=== PATIENT | female | born 1990 | race Caucasian/White ===

== ENCOUNTER 2019-02-10 12:11 | Emergency (ER) | payer SELFPAY ==
[2019-02-10 12:43] LABS: APPEARANCE,URINE CLEAR; BILIRUBIN,URINE NEGATIVE (NEGATIVE); COLOR,URINE YELLOW; GLUCOSE, URINE NEGATIVE (NEGATIVE); KETONES,URINE NEGATIVE (NEGATIVE); LEUKOCYTE ESTERASE,URINE SMALL (NEGATIVE); NITRITE,URINE NEGATIVE (NEGATIVE); PROTEIN,URINE NEGATIVE (NEGATIVE); URINE SPECIFIC GRAVITY 1.014; UROBILINOGEN,URINE NEGATIVE mg/dL (<2.0)
[2019-02-10] MEDS ORDERED: KETOROLAC TROMETHAMINE INJ/PF 30 MG/1 ML SDV IV ONE (13:36)
--- NOTE | 2019-02-10 13:38 | ER Document Report ---
ED Medical Screen (RME) - General Chief Complaint: Possible Kidney Stone Stated Complaint: FLANK PAIN Time Seen by Provider: 02/10/19 13:30 Primary Care Provider: CHRISTOPHER REYES MD [Primary Care Provider] - Follow up as needed Mode of Arrival: Ambulatory Information source: Patient TRAVEL OUTSIDE OF THE [place] IN LAST 30 DAYS: No - HPI Patient complains to provider of: ABDO PAIN Notes: 02/10/19 13:36 Patient here with complaints of right lower quadrant abdominal pain. Is been having this pain for the last several days. She has had a history of kidney stones and was seen by her primary care doctor who thought she may be having a kidney stone. She is been taking tramadol and Flomax. No fevers. No vomiting. Exam Nontoxic, no distress. Lungs clear and equal throughout. Heart sounds normal. Right lower quadrant tenderness to palpation on limited triage abdominal exam. No CVA tenderness to percussion. Plan CBC, CMP, lipase, urine, urine . CT abdomen pelvis with IV contrast due to right lower quadrant tenderness on exam. Toradol for pain. An initial examination was made on the patient as part of the triage process, and it was determined a more comprehensive evaluation was necessary. Initial labs were ordered and patient was transferred to another provider in the ED who assumed care and finished evaluation and plan. - Related Data Allergies/Adverse Reactions: azithromycin [From Zithromax] Allergy (Verified 02/10/19 13:25) Hives ciprofloxacin [From Cipro] Adverse Reaction (Verified 02/10/19 13:25) Past Medical History - General Last Menstrual Period: 01/29/19 - Social History Frequency of alcohol use: None Drug Abuse: None Renal/ Medical History: Reports: Hx Kidney Stones. Denies: Hx Peritoneal Dialysis Past Surgical History: Reports: Hx Breast Surgery, Hx Orthopedic Surgery - jaw, Hx Tonsillectomy Physical Exam - Vital signs Vitals: Temp Pulse Resp BP Pulse Ox 98.4 F 88 18 104/66 98 02/10/19 12:23 02/10/19 12:23 02/10/19 12:23 02/10/19 12:23 02/10/19 12:23 Course - Vital Signs Vital signs: Temp Pulse Resp BP Pulse Ox 98.4 F 88 18 104/66 98 02/10/19 12:23 02/10/19 12:23 02/10/19 12:23 02/10/19 12:23 02/10/19 12:23 - Laboratory Laboratory results interpreted by me: 02/10/19 12:12 Urine Blood MODERATE H Ur Leukocyte Esterase SMALL H Doctor's Discharge - Discharge Referrals: CHRISTOPHER REYES MD [Primary Care Provider] - Follow up as needed
[2019-02-10 14:29] LABS: ABSOLUTE EOSINOPHILS # (AUTO) 0.1 10^3/uL (0.0-0.6); ABSOLUTE LYMPHOCYTES (AUTO) 2.2 10^3/uL (0.5-4.7); ABSOLUTE MONOCYTES (AUTO) 0.5 10^3/uL (0.1-1.4); ABSOLUTE NEUT (AUTO) 3.1 10^3/uL (1.7-8.2); BASOPHILS % (AUTO) 0.6 % (0-2); HEMATOCRIT 43.2 % (36.0-47.0); HEMOGLOBIN 14.4 g/dL (12.0-15.5); LYMPHOCYTES % (AUTO) 36.9 % (13-45); MEAN CORPUSCULAR HEMOGLOBIN 27.9 pg (27.0-33.4); MEAN CORPUSCULAR HGB CONC 33.3 g/dL (32.0-36.0); MEAN CORPUSCULAR VOLUME 84 fl (80-97); MONOCYTES % (AUTO) 9.1 % (3-13); PLATELET COUNT 325 10^3/uL (150-450); RED BLOOD COUNT 5.16 10^6/uL (3.72-5.28); RED CELL DISTRIBUTION WIDTH 13.2 % (11.5-14.0); SEGMENTED NEUTROPHILS % (AUTO) 51.4 % (42-78); TOTAL CELLS COUNTED % (AUTO) 100 %
[2019-02-10 14:48] LABS: ALANINE AMINOTRANSFERASE 13 U/L (9-52); ALBUMIN 4.2 g/dL (3.5-5.0); ALKALINE PHOSPHATASE 36 U/L (38-126); ANION GAP 10 (5-19); ASPARTATE AMINO TRANSFERASE 17 U/L (14-36); BILIRUBIN,DIRECT 0.2 mg/dL (0.0-0.4); BILIRUBIN,TOTAL 0.5 mg/dL (0.2-1.3); BLOOD UREA NITROGEN 9 mg/dL (7-20); CALCIUM 9.8 mg/dL (8.4-10.2); CARBON DIOXIDE 28 mmol/L (22-30); CHLORIDE 103 mmol/L (98-107); LIPASE 57.8 U/L (23-300); POTASSIUM 4.3 mmol/L (3.6-5.0); SODIUM 140.7 mmol/L (137-145); TOTAL PROTEIN 6.5 g/dL (6.3-8.2)
[2019-02-10 15:00] LABS: GLUCOSE 67 mg/dL (75-110)
--- NOTE | 2019-02-10 17:30 | RADIOLOGY REPORT (SQ) ---
EXAM DESCRIPTION: CT ABD/PELVIS WITH IV ONLY COMPLETED DATE/TIME: 02/10/2019 5:03 pm REASON FOR STUDY: RLQ PAIN COMPARISON: None. TECHNIQUE: CT scan of the abdomen and pelvis performed using helical scanning technique with dynamic intravenous contrast injection. No oral contrast. Images reviewed with lung, soft tissue, and bone windows. Reconstructed coronal and sagittal MPR images reviewed. Delayed images for evaluation of the urinary system also acquired. All images stored on PACS. All CT scanners at this facility use dose modulation, iterative reconstruction, and/or weight based d osing when appropriate to reduce radiation dose to as low as reasonably achievable (ALARA). [facility]: Dose Right [facility]: CareDose [facility]: Dose Right [facility]: Teradose 4D [facility]: ChoiceMap CONTRAST TYPE AND DOSE: contrast/concentration: Isovue 350.00 mg/ml; Total Contrast Delivered: 71.0 ml; Total Saline Delivered: 56.4 ml RENAL FUNCTION: BUN 9 creatinine 0.74 RADIATION DOSE: CT Rad equipment meets quality standard of care and radiation dose reduction techniq ues were employed. CTDIvol: 5.5 - 6.8 mGy. DLP: 628 mGy-cm.. LIMITATIONS: None. FINDINGS: LOWER CHEST: No significant findings. No nodules or infiltrates. LIVER: Normal size. No masses. No dilated ducts. SPLEEN: Normal size. No focal lesions. PANCREAS: No masses. No significant calcifications. No adjacent inflammation or peripancreatic fluid collections. Pancreatic duct not dilated. GALLBLADDER: Contracted. ADRENAL GLANDS: No significant masses or asymmetry. RIGHT KIDNEY AND URETER: Duplicated collecting system. No mass. Tiny nonobstructing lower calyceal calculus. Upper moiety hydronephrosis. There is a large calcification in the region of the right UVJ. This seems rather too large to be in the ureter without causing marked hydronephrosis. LEFT KIDNEY AND URETER: No solid masses. No significant calcifications. No hydronephrosis or hydr oureter. AORTA AND VESSELS: No aneurysm. No dissection. Renal arteries, SMA, celiac without stenosis. RETROPERITONEUM: No retroperitoneal adenopathy, hemorrhage or masses. BOWEL AND PERITONEAL CAVITY: No masses or inflammatory changes. No free fluid or peritoneal masses. APPENDIX: Not identified. The appendix lies deep in the pelvis. There is no pericecal inflammation. PELVIS: 2 centimeter left ovarian cyst. ABDOMINAL WALL: No masses. No hernias. BONES: No significant or acute findings. OTHER: No other significant finding. IMPRESSION: 1. 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 T here is an 8 x 12 millimeter calculus in the region of the right UVJ. 2. Small nonobstructing intrarenal calculus in the right kidney. 3. Small left ovarian cyst, almost certainly benign. No additional imaging is required for this. TECHNICAL DOCUMENTATION: JOB ID: [id number] Quality ID # [id number]: Final reports with documentation of one or more dose reduction techniques (e.g., Au tomated exposure control, adjustment of the mA and/or kV according to patient size, use of iterative reconstruction technique) 2010 [employer]- All Rights Reserved Reading location - IP/workstation name: [email or web address]
[2019-02-10] MEDS ORDERED: MORPHINE SULFATE 10 MG/ML INJ IV ONE (18:05)
[2019-02-10] MEDS ORDERED: ONDANSETRON HCL INJ/PF 4 MG/2 ML SDV IV ONE (18:05)
[2019-02-10] MEDS ORDERED: METOCLOPRAMIDE HCL INJ/PF 10 MG/2 ML SDV IV ONE (18:34)
--- NOTE | 2019-02-10 19:22 | ER Document Report ---
ED GI/ - General Chief Complaint: Possible Kidney Stone Stated Complaint: FLANK PAIN Time Seen by Provider: 02/10/19 13:30 Primary Care Provider: CHRISTOPHER REYES MD [ACTIVE STAFF] - Follow up as needed Mode of Arrival: Ambulatory Information source: Patient TRAVEL OUTSIDE OF THE [place] IN LAST 30 DAYS: No - HPI Patient complains to provider of: Abdominal pain Notes: 02/10/19 19:18 Patient is here with complaints of right lower quadrant pain. The patient has a history of kidney stones and over the last few days been having some increasing right lower quadrant pain. She is concerned that this is from a kidney stone. No fevers. She is had some nausea, no vomiting or diarrhea. She is also been feeling slightly lightheaded. No chest pain or shortness of breath. No numbness, tingling, weakness. No blurred or loss of vision. Pain is constant, nothing makes it better or worse, it is moderate. She has had multiple kidney stones in the past. No rash. No injury. Still has her appendix. No vaginal bleeding or discharge. No dysuria or hematuria. No other complaints at this time. - Related Data Allergies/Adverse Reactions: azithromycin [From Zithromax] Allergy (Verified 02/10/19 13:25) Hives ciprofloxacin [From Cipro] Adverse Reaction (Verified 02/10/19 13:25) Past Medical History - General Information source: Patient Last Menstrual Period: 01/29/19 - Social History Smoking Status: Never Smoker Frequency of alcohol use: None Drug Abuse: None Family History: Reviewed & Not Pertinent Patient has suicidal ideation: No Patient has homicidal ideation: No Renal/ Medical History: Reports: Hx Kidney Stones. Denies: Hx Peritoneal Dialysis Past Surgical History: Reports: Hx Breast Surgery, Hx Orthopedic Surgery - jaw, Hx Tonsillectomy Review of Systems - Review of Systems -: Yes All other systems reviewed and negative Physical Exam - Vital signs Vitals: Temp Pulse Resp BP Pulse Ox 98.4 F 88 18 104/66 98 02/10/19 12:23 02/10/19 12:23 02/10/19 12:23 02/10/19 12:23 02/10/19 12:23 - Notes Notes: GENERAL: alert, cooperative, nontoxic, no distress. HEAD: normocephalic, atraumatic EYES: conjunctiva pink without discharge, no external redness or swelling. EARS: no external swelling, no external redness NOSE: atraumatic, no external swelling MOUTH/THROAT: mucous membranes moist and pink, posterior pharynx without erythema, swelling, exudate. No trismus or drooling. NECK: soft, supple, full range of motion, no meningismus. CHEST: no distress, lungs clear and equal throughout. No wheezing, rales, rhonchi. CARDIAC: regular rate and rhythm, no murmur, normal capillary refill, normal pulses. No peripheral edema noted. ABDOMEN: Soft, no tenderness to palpation of the right lower quadrant. No rebound tenderness or guarding. No obvious mass. BACK: full range of motion, no CVA tenderness. EXTREMITIES: full range of motion of all extremities. No redness, no swelling. NEURO: alert and oriented x 3, no focal deficits, full range of motion of all extremities. PYSCH: appropriate mood, affect. Patient is cooperative. SKIN: pink, warm, dry, no rash. Course - Re-evaluation Re-evalutation: 02/10/19 19:20 Patient here with complaints of right lower quadrant pain and concern for possible kidney stone. Is some mild right lower quadrant tenderness. Her white blood cell count is normal, her kidney function is normal, urinalysis shows blood with a few leukocyte esterase but squamous epithelials. CT shows an 8 x 12 mm stone at the right UVJ with duplicated collecting system and hydronephrosis to the superior collecting system. Patient was given Toradol and then has started having some increased pain was given morphine and Zofran. She is complaining some more nausea, I ordered Reglan, she then declined to have the Reglan stating she was feeling somewhat better. I have placed a call to [facility] to [facility] in order to discuss the case with urology based on the large stone that she has on her CT to determine if she will require an emergent/urgent evaluation or she can follow-up as an outpatient. I currently am awaiting a return phone call at this time. We will continue to monitor the patient. 02/10/19 19:[address] Espinosa of urology. States that the patient is fine for discharge home at this time and she can follow-up in the office tomorrow. The patient will be discharged home with a prescription for Keflex, Percocet. Instructions to drink plenty fluids. Follow-up with urology at the next available appointment. Follow-up sooner for worsening pain, high fever, persistent vomiting, or for any further concerns. The patient's emergency department workup and current diagnosis were explained to the patient and or family. Follow-up instructions were provided. Medications if prescribed were discussed. Instructions for when to return to the emergency department including specific worrisome symptoms were discussed with the patient and/or family. - Vital Signs Vital signs: Temp Pulse Resp BP Pulse Ox 98.4 F 88 18 104/66 98 02/10/19 12:23 02/10/19 12:23 02/10/19 12:23 02/10/19 12:23 02/10/19 12:23 - Laboratory Result Diagrams: 02/10/19 14:10 02/10/19 14:10 Laboratory results interpreted by me: 02/10/19 02/10/19 12:12 14:10 Glucose 67 L Alkaline Phosphatase 36 L Urine Blood MODERATE H Ur Leukocyte Esterase SMALL H - Diagnostic Test Radiology reviewed: Image reviewed, Reports reviewed - Patient noted to have an 8 x 12 cm kidney stone at the right UVJ with hydronephrosis. Discharge - Discharge Clinical Impression: Kidney stone Condition: Stable Disposition: HOME, SELF-CARE Instructions: Kidney Stone ([facility]) Additional Instructions: Take medication as prescribed. Call urology tomorrow and follow-up with them at the next available appointment. Dr. Espinosa will be in [place] if you would like to follow-up with him he would be happy to see you tomorrow. Otherwise call the [facility] office to determine if they can see you tomorrow. Follow-up sooner for worsening pain, fever, difficulty breathing or swelling, persistent vomiting, or for any further concerns. Prescriptions: Cephalexin Monohydrate [Keflex 500 mg Capsule] 500 mg PO Q6H 5 Days capsule Cephalexin Monohydrate [Keflex 500 mg Capsule] 500 mg PO Q6H 5 Days capsule Oxycodone HCl/Acetaminophen [Percocet 5-325 mg Tablet] 1 - 2 tab PO Q4H PRN #15 tablet PRN Reason: Oxycodone HCl/Acetaminophen [Percocet 5-325 mg Tablet] 1 - 2 tab PO Q4H PRN #15 tablet PRN Reason: Forms: Elevated Blood Pressure, Smoking Cessation Education Referrals: CHRISTOPHER REYES MD [ACTIVE STAFF] - Follow up as needed ESME ESPINOSA MD [NO LOCAL MD] - Follow up as needed
[2019-02-10 20:09] VITALS: BP 112/71
== END 2019-02-10 20:09 | disposition home or self-care (01) ==
LOC: ER 12:11
DX: N13.2 Hydronephrosis with renal and ureteral calculous obstruction (principal); R10.31 Right lower quadrant pain; R11.0 Nausea; R42 Dizziness and giddiness; Z88.1 Allergy status to other antibiotic agents
CPT/HCPCS: 99284; 96374; 96375; 36415; 83690; 85025; 81025; 80053; 81001; 74177; J1885; J2270; J2405